=== PATIENT | female | born 1980 | race Caucasian/White ===

== ENCOUNTER 2022-11-17 22:44 | Emergency (ER) | payer OTHER ==
[~2022-11-17] VITALS: Ht 167.6 cm; Wt 65.8 kg
[2022-11-17 23:09] LABS: BASOPHILS ABSOLUTE AUTO 0.03 K/mm3 (0.00-0.23); BASOPHILS PERCENT AUTO 1 % (0-2); EOSINOPHILS ABSOLUTE AUTO 0.09 K/mm3 (0.00-0.68); EOSINOPHILS PERCENT AUTO 2 % (0-6); Hemoglobin 12.1 g/dL (11.5-16.0); IMMATURE GRAN ABSOLUTE AUTO 0.01 K/mm3 (0.00-0.10); IMMATURE GRAN PERCENT AUTO 0 % (0-1); LYMPHOCYTES ABSOLUTE AUTO 1.49 K/mm3 (0.84-5.20); LYMPHOCYTES PERCENT AUTO 30 % (21-46); MONOCYTES ABSOLUTE AUTO 0.63 K/mm3 (0.16-1.47); MONOCYTES PERCENT AUTO 13 % (4-13); Mean Corpuscular HGB Conc 31.8 g/dL (31.5-36.5); Mean Corpuscular Volume 91 fL (80-100); Mean Platelet Volume 8.8 fL (9.1-12.4); NEUTROPHILS ABSOLUTE AUTO 2.66 K/mm3 (1.96-9.15); NEUTROPHILS PERCENT AUTO 54 % (41-73); Platelet Count 272 K/mm3 (150-400); RDW Coefficient Variation 13.2 % (11.7-14.2); RDW Standard Deviation 44.5 fL (35.1-46.3); Red Blood Cell Count 4.17 M/mm3 (3.80-5.20); White Blood Cell Count 4.91 K/mm3 (4.00-11.30)
[2022-11-17 23:30] LABS: Albumin, Blood 3.9 g/dL (3.4-5.0); Albumin/Globulin Ratio 1.1 (0.8-1.8); Bilirubin, Total 0.2 mg/dL (0.1-1.0); Bun/Creatinine Ratio 11.9 (12.0-20.0); Calcium, Blood 9.5 mg/dL (8.5-10.1); Creatinine, Blood 1.59 mg/dL (0.40-1.00); Globulin, Blood 3.6 g/dL (2.2-4.0); Potassium, Blood 4.7 mmol/L (3.5-5.5); Total Protein, Blood 7.5 g/dL (6.4-8.2)
[2022-11-18 00:30] VITALS: BP 109/78
[2022-11-18] MEDS ORDERED: DOC250 PO (01:48)
[2022-11-18] MEDS ORDERED: SENNA LAXATIVE8.6 MG PO (01:48)
== END 2022-11-18 02:09 | disposition home or self-care (01) ==
LOC: ER 22:44
PROVIDERS: Physician Assistant
DX: K59.03 Drug induced constipation (principal); T40.495A Adverse effect of other synthetic narcotics, initial encounter; M54.9 Dorsalgia, unspecified; N18.2 Chronic kidney disease, stage 2 (mild); Z88.6 Allergy status to analgesic agent; Z88.8 Allergy status to other drugs, medicaments and biological substances; Z87.891 Personal history of nicotine dependence; X58.XXXA Exposure to other specified factors, initial encounter
CPT/HCPCS: 74176; 80053; 85025; 96374; 99284-25; A9270; J1790